=== PATIENT | female | born 1990 | race Caucasian/White ===

== ENCOUNTER 2020-12-16 17:15 | Emergency (ER) | payer SELFPAY ==
[2020-12-16] MEDS ORDERED: Ondansetron 4 MG/2 ML SDV IVPUSH ONE (17:42)
[2020-12-16] MEDS ORDERED: HYDROmorphone 0.5 MG/0.5 ML Syringe IVPUSH ONE (17:42)
[2020-12-16] MEDS ORDERED: Sodium Chloride 0.9% 10 ML Syringe FLUSH PRN (17:42)
[2020-12-16] MEDS ORDERED: Sodium Chloride 0.9% 1,000 ML IV STA (17:42)
[2020-12-16] MEDS ORDERED: Ketorolac 30 MG/ML SDV IVPUSH ONE (17:42)
--- NOTE | 2020-12-16 17:51 | EDM.PDOC ---
ED HPI GENERAL MEDICAL PROBLEM - General Chief Complaint: Flank Pain Stated Complaint: LEFT SIDE PAIN Time Seen by Provider: 12/16/20 17:31 Source of Information: Reports: Patient, RN Notes Reviewed History Limitations: Reports: No Limitations - History of Present Illness INITIAL COMMENTS - FREE TEXT/NARRATIVE: Patient is a 30-year-old female presenting to the emergency department with complaints of acute onset of left sided abdominal and flank pain around 11 AM today. She reports the pain came on suddenly and was quite intense. It waxes and wanes in nature. She is been having vomiting with it as well. Describes pain as throughout her left flank around the left side of her abdomen and down into her left lower quadrant. Denies any history of kidney stones. She is had no obvious blood in her urine. Denies dysuria, fever, chills, or diarrhea. Left Flank Pain Score (Numeric/FACES): 10 - Related Data Allergies Allergy/AdvReac Type Severity Reaction Status Date / Time No Known Allergies Allergy Verified 12/16/20 17:48 Home Meds: Home Meds Acetaminophen/oxyCODONE [Percocet 325-5 MG] 1 each PO Q4H #15 tab 12/16/20 [Rx] Ondansetron [Zofran ODT] 4 mg PO Q6H PRN #10 tab.dis 12/16/20 [Rx] Past Medical History - Past Health History Medical/Surgical History: Denies Medical/Surgical History Social & Family History - Tobacco Use Tobacco Use Status *Q: Never Tobacco User Second Hand Smoke Exposure: No - Recreational Drug Use Recreational Drug Use: No ED ROS GENERAL - Review of Systems Review Of Systems: Comprehensive ROS is negative, except as noted in HPI. ED EXAM, RENAL/ - Physical Exam Exam: See Below Exam Limited By: No Limitations General Appearance: Alert, Moderate Distress Respiratory/Chest: No Respiratory Distress, Lungs Clear, Normal Breath Sounds, No Accessory Muscle Use, Chest Non-Tender Cardiovascular: Normal Peripheral Pulses, Regular Rate, Rhythm, No Edema, No Gallop, No JVD, No Murmur, No Rub GI/Abdominal: Normal Bowel Sounds, Soft, Non-Tender, No Organomegaly, No Distention, No Abnormal Bruit, No Mass Back Exam: Normal Inspection, Full Range of Motion, CVA Tenderness (L). No: CVA Tenderness (R) Neurological: Alert, Oriented, CN II-XII Intact, Normal Cognition, Normal Gait, Normal Reflexes, No Motor/Sensory Deficits Psychiatric: Normal Affect, Normal Mood Skin Exam: Warm, Dry, Intact, Normal Color, No Rash Course - Vital Signs Last Recorded V/S: Last Vital Signs Temp 96.9 F 12/16/20 17:27 Pulse 56 L 12/16/20 19:18 Resp 18 12/16/20 19:18 BP 127/78 12/16/20 19:18 Pulse Ox 94 L 12/16/20 19:18 - Orders/Labs/Meds Labs: Laboratory Tests 12/16/20 12/16/20 12/16/20 Range/Units 17:30 17:30 17:30 WBC 11.97 H (3.98-10.04) K/mm3 RBC 4.75 (3.98-5.22) M/mm3 Hgb 12.7 (11.2-15.7) gm/dl Hct 38.1 (34.1-44.9) % MCV 80.2 (79.4-94.8) fl MCH 26.7 (25.6-32.2) pg MCHC 33.3 (32.2-35.5) g/dl RDW Std Deviation 40.3 (36.4-46.3) fL Plt Count 429 H (182-369) K/mm3 MPV 9.6 (9.4-12.3) fl Neut % (Auto) 85.3 H (34.0-71.1) % Lymph % (Auto) 11.0 L (19.3-51.7) % [place] % (Auto) 3.3 L (4.7-12.5) % Eos % (Auto) 0 L (0.7-5.8) Baso % (Auto) 0.3 (0.1-1.2) % Neut # (Auto) 10.22 H (1.56-6.13) K/mm3 Lymph # (Auto) 1.32 (1.18-3.74) K/mm3 [place] # (Auto) 0.39 H (0.24-0.36) K/mm3 Eos # (Auto) 0.00 L (0.04-0.36) K/mm3 Baso # (Auto) 0.03 (0.01-0.08) K/mm3 Sodium 137 (136-145) mEq/L Potassium 4.1 (3.5-5.1) mEq/L Chloride 103 (98-107) mEq/L Carbon Dioxide 24 (21-32) mEq/L Anion Gap 14.1 (5-15) BUN 14 (7-18) mg/dL Creatinine 0.9 (0.55-1.02) mg/dL Est Cr Clr Drug Dosing 84.01 mL/min Estimated GFR (MDRD) > 60 (>60) mL/min BUN/Creatinine Ratio 15.6 (14-18) Glucose 121 H (70-99) mg/dL Calcium 9.1 (8.5-10.1) mg/dL Total Bilirubin 0.4 (0.2-1.0) mg/dL AST 23 (15-37) U/L ALT 33 (14-59) U/L Alkaline Phosphatase 75 (46-116) U/L C-Reactive Protein <0.2 (<1.0) mg/dL Total Protein 8.0 (6.4-8.2) g/dl Albumin 4.2 (3.4-5.0) g/dl Globulin 3.8 gm/dL Albumin/Globulin Ratio 1.1 (1-2) HCG, Qual Negative (NEGATIVE) Urine Color (Yellow) Urine Appearance (Clear) Urine pH (5.0-8.0) Ur Specific [place] (1.005-1.030) Urine Protein (Negative) Urine Glucose (UA) (Negative) Urine Ketones (Negative) Urine Occult Blood (Negative) Urine Nitrite (Negative) Urine Bilirubin (Negative) Urine Urobilinogen (0.2-1.0) Ur Leukocyte Esterase (Negative) Urine RBC (0-5) /hpf Urine WBC (0-5) /hpf Ur Squamous Epith Cells (0-5) /hpf Urine Bacteria (FEW) /hpf Urine Mucus (FEW) /hpf 12/16/20 Range/Units 18:05 WBC (3.98-10.04) K/mm3 RBC (3.98-5.22) M/mm3 Hgb (11.2-15.7) gm/dl Hct (34.1-44.9) % MCV (79.4-94.8) fl MCH (25.6-32.2) pg MCHC (32.2-35.5) g/dl RDW Std Deviation (36.4-46.3) fL Plt Count (182-369) K/mm3 MPV (9.4-12.3) fl Neut % (Auto) (34.0-71.1) % Lymph % (Auto) (19.3-51.7) % [place] % (Auto) (4.7-12.5) % Eos % (Auto) (0.7-5.8) Baso % (Auto) (0.1-1.2) % Neut # (Auto) (1.56-6.13) K/mm3 Lymph # (Auto) (1.18-3.74) K/mm3 [place] # (Auto) (0.24-0.36) K/mm3 Eos # (Auto) (0.04-0.36) K/mm3 Baso # (Auto) (0.01-0.08) K/mm3 Sodium (136-145) mEq/L Potassium (3.5-5.1) mEq/L Chloride (98-107) mEq/L Carbon Dioxide (21-32) mEq/L Anion Gap (5-15) BUN (7-18) mg/dL Creatinine (0.55-1.02) mg/dL Est Cr Clr Drug Dosing mL/min Estimated GFR (MDRD) (>60) mL/min BUN/Creatinine Ratio (14-18) Glucose (70-99) mg/dL Calcium (8.5-10.1) mg/dL Total Bilirubin (0.2-1.0) mg/dL AST (15-37) U/L ALT (14-59) U/L Alkaline Phosphatase (46-116) U/L C-Reactive Protein (<1.0) mg/dL Total Protein (6.4-8.2) g/dl Albumin (3.4-5.0) g/dl Globulin gm/dL Albumin/Globulin Ratio (1-2) HCG, Qual (NEGATIVE) Urine Color Yellow (Yellow) Urine Appearance Clear (Clear) Urine pH 6.5 (5.0-8.0) Ur Specific [place] 1.025 (1.005-1.030) Urine Protein Negative (Negative) Urine Glucose (UA) Negative (Negative) Urine Ketones 1+ H (Negative) Urine Occult Blood 1+ H (Negative) Urine Nitrite Negative (Negative) Urine Bilirubin Negative (Negative) Urine Urobilinogen 0.2 (0.2-1.0) Ur Leukocyte Esterase 1+ H (Negative) Urine RBC 10-20 H (0-5) /hpf Urine WBC 5-10 H (0-5) /hpf Ur Squamous Epith Cells 5-10 H (0-5) /hpf Urine Bacteria Moderate H (FEW) /hpf Urine Mucus Few (FEW) /hpf Meds: Medications Discontinued Medications Generic Name Dose Route Start Last Admin Trade Name Freq PRN Reason Stop Dose Admin Hydromorphone HCl 0.5 mg 12/16/20 17:42 12/16/20 18:00 Hydromorphone 0.5 Mg/0.5 Ml Syringe IVPUSH 12/16/20 17:43 0.5 mg ONETIME ONE Administration Sodium Chloride 1,000 mls @ 999 mls/hr 12/16/20 17:42 12/16/20 17:57 Normal Saline IV 12/16/20 18:42 999 mls/hr NOW STA Administration Ketorolac Tromethamine 30 mg 12/16/20 17:42 12/16/20 18:00 Ketorolac 30 Mg/Ml Sdv IVPUSH 12/16/20 17:43 30 mg ONETIME ONE Administration Ondansetron HCl 4 mg 12/16/20 17:42 12/16/20 18:02 Ondansetron 4 Mg/2 Ml Sdv IVPUSH 12/16/20 17:43 4 mg ONETIME ONE Administration Sodium Chloride 10 ml 12/16/20 17:42 12/16/20 18:00 Sodium Chloride 0.9% 10 Ml Syringe FLUSH 10 ml ASDIRECTED PRN Administration Keep Vein Open - Re-Assessments/Exams Free Text/Narrative Re-Assessment/Exam: Patient is a 30-year-old female presenting to the emergency department with complaints of acute onset of left-sided abdominal and back pain around 11 AM today. On exam, she does have diffuse left-sided CVA tenderness. Exam is suspicious for kidney stone. I have ordered blood work, urinalysis, abdomen pelvis CT. I will give IV fluids, Dilaudid, Toradol, and Zofran. 12/16/20 18:43 Hematology is significant for WBC minimally elevate 11.97. Urinalysis shows 1+ ketones, 1+ occult blood, 1+ leukocyte esterase, 10-20 RBCs, 5-10 WBCs, 5-10 sq uamous epithelial, moderate bacteria. This indicates likely contamination. I have sent the urine for culture. She has no urinary symptoms as well as no fever or chills. Review of the CT scan shows a left-sided kidney stone in the distal ureter, however official radiologist read is pending. Patient's pain has completely resolved after the medications given. 12/16/20 19:08 CT scan of the abdomen pelvis impression as follows: 1. 6 mm calculus distal left ureter with marked left hydronephrosis and hydroureter as well as perinephric stranding. 2. See above for multiple other nonemergent details. Results discussed with patient. We will discharge her home with Zofran, Percocet, and a urine strainer. Discussed that she should develop fever, chills, or other concerning symptoms she should return to ER. Also recommend that if she does not pass the stone within the next week she should follow-up in the clinic for referral to urology. Discharge instructions as documented. Departure - Departure Time of Disposition: 19:08 Disposition: Home, Self-Care 01 Condition: Good Clinical Impression: Kidney stone - Discharge Information *PRESCRIPTION DRUG MONITORING PROGRAM REVIEWED*: Yes *COPY OF PRESCRIPTION DRUG MONITORING REPORT IN PATIENT JOHNY: No Prescriptions: Acetaminophen/oxyCODONE [Percocet 325-5 MG] 1 each PO Q4H #15 tab Ondansetron [Zofran ODT] 4 mg PO Q6H PRN #10 tab.dis PRN Reason: Nausea/Vomiting Instructions: Kidney Stones, [id number] Referrals: PCP,None [Primary Care Provider] - Forms: ED Department Discharge Additional Instructions: Take ibuprofen routinely for pain. For pain not relieved by this, take the oxycodone with Tylenol as prescribed. Do not work or drive for 12 hours after taking this as it can be sedating. You Zofran as needed for nausea. Strain urine each time that you avoid until you capture the stone. If you have not passed the stone by the end of next week, recommend follow-up in the clinic with your primary care provider for referral to urology. If you develop any worsening symptoms, particular fevers and chills, or any other concerning symptoms, please return to the emergency department for reevaluation. Sepsis Event Note (ED) - Evaluation Sepsis Screening Result: No Definite Risk
--- NOTE | 2020-12-18 06:38 | CT ---
CT abdomen and pelvis Technique: Multiple axial sections were obtained from above the dome of the diaphragm inferiorly through the pubic symphysis. Intravenous and oral contrast were not utilized. Study has been performed as a ureteral stone protocol. Reconstructed coronal and sagittal images were also obtained. Comparison: No prior abdominal imaging is available. Findings: Left ureter is dilated. Mild inflammatory change is noted around the lower left kidney compatible with distal ureteral obstruction. This obstruction is caused by a calculus measuring approximately 6 mm. This stone occurs slightly proximal to the UVJ. No other abnormal calcifications are seen within the ureters or within the kidneys. Slight atelectasis is seen within both posterior lungs. Liver shows mild fatty infiltration. Gallbladder contains no calcified gallstones. Spleen size is normal. Small nodule is noted within the left adrenal gland measuring 1.5 cm which has negative Hounsfield unit measurements and is compatible with incidental adrenal adenoma. Pancreas shows no abnormality. Abdominal aorta shows no aneurysm. No retroperitoneal adenopathy or mesenteric abnormalities are seen. Appendix is seen which is normal. No pelvic mass or adenopathy is seen. Bone window settings were reviewed which show no acute osseous finding. Impression: 1. 6 mm obstructing calculus within the distal left ureter occurring slightly proximal to the UVJ. 2. Small adrenal adenoma is seen on the left side. 3. Fatty infiltration within the liver. Diagnostic code #3 I agree with preliminary report from [facility], finalized on 12/16/20, 8:00 PM CDT, code 1
== END 2020-12-16 19:18 | disposition home or self-care (01) ==
LOC: JD.ED 17:15
DX: N13.2 Hydronephrosis with renal and ureteral calculous obstruction (principal)
CPT/HCPCS: 36415; 74176; 80053; 81001; 84703; 85025; 86140; 87086; 96374; 96375; 99284; J1170; J1885; J2405; J7030